=== PATIENT | female | born 1950 | race Caucasian/White ===

== ENCOUNTER → 2021-08-02 12:38 | Outpatient (CLI) | payer MEDICARE, OTHER, SELFPAY ==
[2021-08-02 19:19] LABS: Alanine Aminotransferase 33 IU/L (<35); Albumin 4.6 g/dL (3.5-5.0); Albumin Globulin Ratio 1.5 (1.0-2.8); Alkaline Phosphatase 110 U/L (38-126); Aspartate Aminotransferase 47 IU/L (14-36); BUN Creatinine Ratio 17.1 (6-22); Bilirubin Total 0.8 mg/dL (0.2-1.3); Blood Urea Nitrogen 12 mg/dL (7-17); Calcium 9.9 mg/dL (8.4-10.2); Carbon Dioxide 21 mmol/L (22-32); Chloride 101 mmol/L (98-107); Cholesterol 230 mg/dL (140-199); Estimated Glomerular Filt Rate > 60.0 mL/min (>60); Glucose 103 mg/dL (80-110); HDL Cholesterol 64 mg/dL (40-60); HEMOLYSIS < 15 (0-50); LDL Cholesterol Calculated 146 mg/dL (<100); Potassium 4.5 mmol/L (3.4-5.1); Sodium 132 mmol/L (137-145); Total Protein 7.6 g/dL (6.3-8.2); Triglycerides 102 mg/dL (35-150); Uric Acid 3.7 mg/dL (2.5-6.2)
[2021-08-02 19:21] LABS: Hemoglobin A1C% w Est Avg Glu 5.8 % (4.0-6.0)
[2021-08-02 19:24] LABS: High Sensitivity CRP - Cardiac 1.1 mg/L (1.0-3.0)
[2021-08-02 19:35] LABS: Vitamin D 25 Hydroxy (D3) 33.2 ng/mL (30.0-100.0)
[2021-08-02 20:05] LABS: Erythrocyte Sedimentation Rate 6 MM/HR (0-20)
== END ==
PROVIDERS: Internal Medicine Cardiovascular Disease; PCP Family Medicine
DX: E78.5 Hyperlipidemia, unspecified (principal); E88.9 Metabolic disorder, unspecified; F32.A Depression, unspecified; M20.42 Other hammer toe(s) (acquired), left foot
CPT/HCPCS: 80053; 80061; 82306; 83036; 84550; 85651; 86140

== ENCOUNTER → 2021-08-17 11:35 | Outpatient (CLI) | payer MEDICARE, OTHER, SELFPAY ==
[2021-08-17 19:21] LABS: Add Manual Diff / Slide Review NO; Basophils Absolute Auto 100 /uL (0-100); Basophils Percent Auto 0.9 % (0-2); Eosinophils Absolute Auto 100 /uL (0-450); Eosinophils Percent Auto 1.7 % (2-4); Hematocrit 42.1 % (36-46); Hemoglobin 13.8 g/dL (12.0-16.0); Lymphocytes Absolute Auto 2600 /uL (1100-4500); Lymphocytes Percent Auto 36.8 % (25-40); Mean Corpuscular HGB Conc 32.9 % (30-36); Mean Corpuscular Hemoglobin 29.9 PG (26-34); Mean Corpuscular Volume 90.9 fL (80-100); Monocytes Absolute Auto 700 /uL (0-900); Monocytes Percent Auto 9.8 % (3-14); Neutrophils Absolute Auto 3500 /uL (1500-7000); Neutrophils Percent Auto 50.8 % (50-75); Platelet Count 328 X10^3/uL (150-400); Red Blood Cell Count 4.63 X10^6/uL (4.0-5.2); Red Cell Distribution Width 12.6 % (11.6-14.8)
== END ==
PROVIDERS: Internal Medicine Cardiovascular Disease; PCP Family Medicine
DX: F32.A Depression, unspecified (principal); D75.89 Other specified diseases of blood and blood-forming organs
CPT/HCPCS: 85025

== ENCOUNTER → 2024-06-28 11:07 | Outpatient (CLI) | payer MEDICARE, OTHER, SELFPAY ==
[2024-06-28 18:59] LABS: Add Manual Diff / Slide Review NO; Basophils Absolute Auto 100 /uL (0-100); Basophils Percent Auto 0.5 % (0-2); Eosinophils Absolute Auto 100 /uL (0-450); Eosinophils Percent Auto 0.8 % (2-4); Hematocrit 43.9 % (36-46); Lymphocytes Absolute Auto 2600 /uL (1100-4500); Mean Corpuscular HGB Conc 34.1 % (30-36); Mean Corpuscular Hemoglobin 31.3 PG (26-34); Monocytes Absolute Auto 700 /uL (0-900); Monocytes Percent Auto 6.7 % (3-14); Neutrophils Absolute Auto 6300 /uL (1500-7000); Platelet Count 349 X10^3/uL (150-400); Red Blood Cell Count 4.78 X10^6/uL (4.0-5.2); White Blood Cell Count 9.8 X10^3/uL (4.5-11.0)
[2024-06-28 19:22] LABS: Alanine Aminotransferase 31 IU/L (<35); Albumin 4.6 g/dL (3.5-5.0); Albumin Globulin Ratio 1.7 (1.0-2.8); Alkaline Phosphatase 93 U/L (38-126); Aspartate Aminotransferase 35 IU/L (14-36); BUN Creatinine Ratio 16.7 (6-22); Bilirubin Total 0.9 mg/dL (0.2-1.3); Blood Urea Nitrogen 12 mg/dL (7-17); C-Reactive Protein Quant < 0.5 mg/dL (<1.0); Calcium 10.3 mg/dL (8.4-10.2); Carbon Dioxide 23 mmol/L (22-32); Chloride 99 mmol/L (98-107); Estimated Glomerular Filt Rate > 60 mL/min (>60); Globulin 2.7 g/dL (1.7-4.1); Glucose 105 mg/dL (80-110); HEMOLYSIS < 15 (0-50); Potassium 4.8 mmol/L (3.4-5.1); Sodium 131 mmol/L (137-145); Total Protein 7.3 g/dL (6.3-8.2)
[2024-06-28 19:41] LABS: Erythrocyte Sedimentation Rate 3 MM/HR (0-20)
[2024-07-01 11:10] LABS: CCP Antibodies IgG/IgA 0 units (0-19)
[2024-07-01 15:08] LABS: ANA Screen, IFA Negative (.)
== END ==
PROVIDERS: PCP Family Medicine; Visit Provider Family Medicine
DX: M25.551 Pain in right hip (principal); M25.552 Pain in left hip; M54.10 Radiculopathy, site unspecified
CPT/HCPCS: 80053; 85025; 85651; 86038; 86140; 86200

== ENCOUNTER → 2024-09-02 08:58 | Outpatient (CLI) | payer MEDICARE, OTHER, SELFPAY ==
[2024-09-02 20:06] LABS: BUN Creatinine Ratio 17.1 (6-22); Blood Urea Nitrogen 13 mg/dL (7-17); Calcium 9.6 mg/dL (8.4-10.2); Carbon Dioxide 26 mmol/L (22-32); Chloride 100 mmol/L (98-107); Cholesterol 251 mg/dL (140-199); Estimated Glomerular Filt Rate > 60 mL/min (>60); Glucose 95 mg/dL (70-99); HDL Cholesterol 54 mg/dL (40-60); HEMOLYSIS < 15 (0-50); LDL Cholesterol Calculated 171 mg/dL (<100); Potassium 4.5 mmol/L (3.4-5.1); Sodium 133 mmol/L (137-145); Triglycerides 132 mg/dL (35-150)
[2024-09-02 20:21] LABS: Vitamin D 25 Hydroxy (D3) 51.1 ng/mL (30.0-100.0)
[2024-09-02 20:30] LABS: Sodium Urine Random 42 mmol/L (30-90)
[2024-09-02 20:35] LABS: Thyroid Stimulating Hormone 2.16 uIU/mL (0.47-4.68)
[2024-09-04 09:09] LABS: Calcium 9.5 mg/dL (8.7-10.3); Parathyroid Hormone, Intact 56 pg/mL (15-65)
[2024-09-05 15:39] LABS: Free Kappa Lt Chains, Serum 15.9 mg/L (3.3-19.4)
== END ==
PROVIDERS: PCP Family Medicine; Visit Provider Family Medicine
DX: R79.89 Other specified abnormal findings of blood chemistry (principal); E87.1 Hypo-osmolality and hyponatremia; E83.52 Hypercalcemia; R10.9 Unspecified abdominal pain; R19.5 Other fecal abnormalities; R10.2 Pelvic and perineal pain; M54.10 Radiculopathy, site unspecified
CPT/HCPCS: 80048; 80061; 82306; 82310; 83883; 83930; 83935; 83970; 84155; 84165; 84300; 84443